=== PATIENT | male | born 1950 | race Caucasian/White ===

== ENCOUNTER 2021-08-13 21:55 | Emergency (ER) | payer OTHER ==
[2021-08-14] MEDS ORDERED: NORFLEX 100 MG100 MG PO (02:53)
[2021-08-14] MEDS ORDERED: IBUPROFEN600 MG PO (02:53)
== END 2021-08-14 03:05 | disposition home or self-care (01) ==
LOC: ER1 21:55
DX: S46.911A Strain of unspecified muscle, fascia and tendon at shoulder and upper arm level, right arm, initial encounter (principal); S13.4XXA Sprain of ligaments of cervical spine, initial encounter; S23.3XXA Sprain of ligaments of thoracic spine, initial encounter; S33.5XXA Sprain of ligaments of lumbar spine, initial encounter; V43.62XA Car passenger injured in collision with other type car in traffic accident, initial encounter; Y92.410 Unspecified street and highway as the place of occurrence of the external cause
CPT/HCPCS: 72125; 72128; 72131; 73030; 99284